=== PATIENT | female | born 1950 | race Caucasian/White ===

== ENCOUNTER → 2020-03-29 10:56 | Outpatient (BNVA) | payer MEDICARE, OTHER, SELFPAY | PROVIDERS: Family Provider Nurse Practitioner Family; PCP Nurse Practitioner Family; Visit Provider Nurse Practitioner Family | DX: Z00.00 Encounter for general adult medical examination without abnormal findings (principal); I10 Essential (primary) hypertension; E78.5 Hyperlipidemia, unspecified; N18.9 Chronic kidney disease, unspecified; E03.9 Hypothyroidism, unspecified; F41.1 Generalized anxiety disorder | CPT/HCPCS: 80053; 80061; 84443; 85025 ==

== ENCOUNTER → 2020-06-08 12:12 | Outpatient (BNVA) | payer MEDICARE, OTHER, SELFPAY | PROVIDERS: Family Provider Nurse Practitioner Family; PCP Nurse Practitioner Family; Visit Provider Nurse Practitioner Family | DX: M17.11 Unilateral primary osteoarthritis, right knee (principal); M25.561 Pain in right knee; E03.9 Hypothyroidism, unspecified | CPT/HCPCS: 73562; 84443 ==

== ENCOUNTER → 2020-07-12 14:37 | Outpatient (BNVA) | payer MEDICARE, OTHER, SELFPAY | PROVIDERS: Family Provider Nurse Practitioner Family; PCP Nurse Practitioner Family; Referring Provider Family Medicine; Visit Provider Specialist | DX: M25.561 Pain in right knee (principal); M17.0 Bilateral primary osteoarthritis of knee | CPT/HCPCS: 73560; 73565 ==

== ENCOUNTER → 2020-09-27 10:25 | Outpatient (BNVA) | payer MEDICARE, OTHER, SELFPAY | PROVIDERS: Family Provider Nurse Practitioner Family; PCP Nurse Practitioner Family; Visit Provider Family Medicine | DX: E03.9 Hypothyroidism, unspecified (principal); F41.1 Generalized anxiety disorder; I10 Essential (primary) hypertension; E78.5 Hyperlipidemia, unspecified | CPT/HCPCS: 80053; 80061; 84443; 85025 ==

== ENCOUNTER → 2021-04-26 09:13 | Outpatient (BNVA) | payer MEDICARE, OTHER, SELFPAY | PROVIDERS: Family Provider Nurse Practitioner Family; PCP Nurse Practitioner Family; Visit Provider Family Medicine | DX: E78.5 Hyperlipidemia, unspecified (principal); E03.9 Hypothyroidism, unspecified; I10 Essential (primary) hypertension; F41.1 Generalized anxiety disorder | CPT/HCPCS: 80053; 80061; 84443; 85025 ==

== ENCOUNTER → 2021-10-21 11:10 | Outpatient (BNVA) | payer MEDICARE, OTHER, SELFPAY | PROVIDERS: Family Provider Nurse Practitioner Family; PCP Family Medicine; Visit Provider Family Medicine | DX: E03.9 Hypothyroidism, unspecified (principal); E78.5 Hyperlipidemia, unspecified; F41.1 Generalized anxiety disorder; G25.81 Restless legs syndrome; I10 Essential (primary) hypertension | CPT/HCPCS: 80053; 80061; 84443; 85025 ==

== ENCOUNTER → 2022-02-06 14:30 | Outpatient (BNVA) | payer MEDICARE, OTHER, SELFPAY | PROVIDERS: Family Provider Nurse Practitioner Family; PCP Family Medicine; Visit Provider Nurse Practitioner Family | DX: M25.522 Pain in left elbow (principal) | CPT/HCPCS: 73080 ==

== ENCOUNTER → 2022-02-27 13:12 | Outpatient (BNVA) | payer MEDICARE, OTHER, SELFPAY | PROVIDERS: Family Provider Nurse Practitioner Family; PCP Family Medicine; Visit Provider Specialist | DX: M70.22 Olecranon bursitis, left elbow (principal) | CPT/HCPCS: 20610; 73080; 80503; 87070; 87075; 87205; 89050; 99213 ==

== ENCOUNTER → 2022-04-19 11:00 | Outpatient (BNVA) | payer MEDICARE, OTHER, SELFPAY | PROVIDERS: Family Provider Nurse Practitioner Family; PCP Family Medicine; Visit Provider Family Medicine | DX: I10 Essential (primary) hypertension (principal); E78.5 Hyperlipidemia, unspecified; E03.9 Hypothyroidism, unspecified; F41.1 Generalized anxiety disorder | CPT/HCPCS: 80053; 80061; 84443; 85025 ==

== ENCOUNTER → 2022-04-24 10:16 | Outpatient (BNVA) | payer MEDICARE, OTHER, SELFPAY | PROVIDERS: Family Provider Nurse Practitioner Family; PCP Family Medicine; Visit Provider Specialist | DX: M70.22 Olecranon bursitis, left elbow (principal) | CPT/HCPCS: 99213 ==

== ENCOUNTER → 2022-06-08 09:08 | Outpatient (BNVA) | payer MEDICARE, OTHER, SELFPAY | PROVIDERS: Family Provider Nurse Practitioner Family; PCP Family Medicine; Visit Provider Nurse Practitioner Family | DX: M24.022 Loose body in left elbow (principal) | CPT/HCPCS: 99214 ==

== ENCOUNTER 2022-06-23 08:56 | Day surgery (SDC) | payer MEDICARE, OTHER, SELFPAY ==
[2022-06-22 12:10] VITALS: BMI 26.8
[2022-06-23] VITALS (8 sets, daily range): BP systolic 102–175; BP diastolic 67–81; PULSE 55–60; RESP 12–20; TEMP 35.8–36.2; O2SAT 93–100
[2022-06-23] MEDS: sodium chloride 0.9% 1,000 ML 30 ML IV (09:31)
[2022-06-23] MEDS: acetaminophen 1,000 MG/100 ML PIGGYBACK 400 MG IV (09:33)
[2022-06-23] MEDS: CELEcoxib 200 mg Capsule 400 MG PO (09:35)
--- NOTE | 2022-06-23 10:03 | ANES.PREANE2 ---
Pre-Anesthetic Assessment Height/Weight: Height 1.55 m Weight 64.41 kg Temp Pulse Resp BP Pulse Ox O2 Del Method 97.1 F L 55 L 16 175/71 100 06/23/22 09:15 06/23/22 09:15 06/23/22 09:15 06/23/22 09:15 06/23/22 09:15 06/23/22 09:17 Preop Diagnosis: Left elbow loose body Operation Date: 06/23/22 12:00 Proposed Procedures p LEFT ELBOW FOREIGN BODY REMOVAL 48385,M24.022(Left) - Renee Mccullough MD Familial anesthetic complications: NOne Was Beta Ernestine taken within 24 hours: Yes Was Clonidine taken within 24 hours: N/A Last intake: Intake Last Liquid Date 06/22/22 Last Liquid Time 21:00 Last Solid Date 06/22/22 Last Solid Time 16:00 Social No alcohol and No tobacco Exam alert, oriented x 3, clear to auscultation bilaterally and regular rate & rhythm Airway Mallampati: Class II Dentition: full CV/HEM Hypertension Metabolic Hyperlipidemia and Thyroid Disease Anesthetic Plan ASA status: 3 Anesthesia: General Risk of > 500 ml blood loss (7ml/kg in children): No Medications/Allergies Home Medications Medication Instructions Recorded Confirmed Last Taken Type aspirin 81 mg tablet,delayed 81 mg PO DAILY 06/21/20 06/22/22 06/22/22 History release (Adult Low Dose Aspirin) citalopram 20 mg tablet 20 mg PO DAILY #90 tabs 04/19/22 06/22/22 06/22/22 Rx atorvastatin 20 mg tablet (Lipitor) 20 mg PO DAILY 06/22/22 06/22/22 06/22/22 History hydrochlorothiazide 25 mg tablet 25 mg PO DAILY 06/22/22 06/22/22 06/22/22 History levothyroxine 88 mcg tablet 88 mcg PO DAILY 06/22/22 06/23/22 06/23/22 06:30 History lisinopril 5 mg tablet 5 mg PO BID 06/22/22 06/22/22 06/22/22 History metoprolol succinate 100 mg 100 mg PO DAILY 06/22/22 06/23/22 06/23/22 06:30 History tablet,extended release 24 hr pramipexole 0.25 mg tablet 0.25 mg PO BEDTIME 0306/22/22 06/21/22 History Allergies Allergy/AdvReac Type Severity Reaction Status Date / Time No Known Allergies Allergy Verified 06/22/22 12:01 Current Medications Generic Name Dose Route Start Last Admin Trade Name Cornell PRN Reason Stop Dose Admin Sodium Chloride 1,000 mls @ 30 mls/hr 06/23/22 09:15 06/23/22 09:31 Sodium Chloride 0.9% IV 06/24/22 09:14 30 mls/hr .Q24H LENORE Administration PFSH Anesthesia Medical History CKD (chronic kidney disease) Dyslipidemia Hypertension Hypothyroidism (acquired) Osteoporosis Surgical History Hx of colonoscopy (~2013) recheck 10 yrs Family History Family/Other Hypertension Social History Smoking and tobacco status: never smoked Second hand smoke exposure: No Alcohol intake: never Lives independently: Yes Household members: spouse Marital status: Current occupational status: retired Current gender identity: Female Data Anesthesia Cardiac Studies: No Data to Display
--- NOTE | 2022-06-23 10:19 | P.HPUD_ITS ---
Surgery/Procedure H&P Update DATE OF PROCEDURE: June 23, 2022 DATE H&P PERFORMED: 06/08/22 H&P UPDATE INFORMATION: I have reviewed H&P completed within last 30 days, I have examined patient prior to procedure, No changes to prior documentation and H&P is in [facility] EMR on date indicated PREOP DIAGNOSIS: Left elbow loose body PLANNED PROCEDURE: Operation Date: 06/23/22 12:00 Proposed Procedures p LEFT ELBOW FOREIGN BODY REMOVAL 67119,M24.022(Left) - Renee Mccullough MD Related Problem List Diagnoses (1) Loose body of elbow: Qualifiers: Laterality: left Qualified Code(s): M24.022 - Loose body in left elbow
[2022-06-23] MEDS: ceFAZolin 2,000 MG in sodium chloride 0.9% (plus) 50 ML 100 MG IV (11:05)
--- NOTE | 2022-06-23 11:56 | P.OP_ITS ---
Operative Report Date of procedure: June 23, 2022 Pre-op diagnosis: Loose body left elbow Post-op diagnosis: Loose body left elbow Post-op findings: Small oblong grayish colored loose body with 2 tiny round similar looking loose bodies as well Procedure done: Removal loose body left elbow olecranon bursa Specimens removed/disposition: 1 larger and 2 tiny grayish colored loose bodies sent to pathology Pathology: As above Surgeon: Renee Mccullough Tree Scout: [facility] operating room technicians Anesthesia: General (Per LMA, ASA 3) Estimated blood loss (mL): 2 Tourniquet time (min): 0 IV fluids (mL): 600 Urine output (mL): 0 (No Diaz) Complications: None Findings: Small grayish colored oblong hard loose body with 2 tiny round similar looking loose bodies sent to pathology in normal saline Condition: stable Disposition: PACU (Then discharged to same-day surgery for discharge home) Brief History: Nadira Grant is an established 72 year old female who presents for removal of loose body from the olecranon bursa of her left elbow. She states if she hits her elbow she states having pain. On physical examination, she is able to roll this loose body around the prominence of her olecranon. It does not seem to extend out into the larger domain of her olecranon bursa. Risks and complications were discussed with her. She had been given the option of no surgical intervention, but she stated that it was painful for her and she wished to have it removed. Consents were signed and questions were answered. Procedure: The patient was brought to the operating theater. The patient was administered a general anesthetic per LMA. Following this, the patient's left upper extremity was prepped and draped with DuraPrep. It was draped free. Following prepping and draping and prior to surgical incision, a surgical pause was performed. At the time of surgical pause, we confirmed the site and side of surgery as well as appropriate and timely administration of preoperative antibiotics. The elbow was evaluated, and the loose body was palpated. A small incision was made on the radial aspect of the olecranon to allow removal of the small loose body. It was difficult to find a loose body. A needle was placed into it to hold it in position while further dissection into the olecranon bursa was accomplished. We were able to milk the loose body out of the incision. Following removal of this loose body, another small round loose body presented itself and subsequently, after irrigation, a third. The loose bodies were placed in normal saline and sent to pathology. The area was then copiously irrigated and no further loose bodies were palpated or seen. The elbow was placed through range of motion during this process to assure that any remaining loose bodies would present. Attention was then directed to closure. We closed the subcutaneous tissues with 2-0 Monocryl and subsequently closed the skin with a running 4-0 subcuticular suture. This was followed by Dermabond and Steri-Strips. An OpSite was placed followed by fluffs, soft roll, and an Cesar wrap. The procedure was well tolerated. Patient will be discharged home to follow-up with me in the office. Related Problem List Diagnoses (1) Loose body of elbow:
--- NOTE | 2022-06-23 12:01 | SUR.PHASEI ---
1153 PT TO RECOVERY AT THIS TIME VIA STRETCHER. ORAL AIRWAY IN PLACE. RESP EVEN AND UNLABORED.DRESSING TO LEFT ELBOW, DRY AND INTACT.
--- NOTE | 2022-06-23 12:04 | SUR.PHASEI ---
1204 ORAL AIRWAY REMOVED AT THIS TIME. SPO2 96% RA, PT ANSWERING QUESTIONS APPROPRIATELY.
--- NOTE | 2022-06-23 12:28 | ANE.PACU2 ---
Inpatient post-anesthesia follow up: Airway intact: Yes Vital signs: Temperature 96.5 F Pulse Rate 56 Respiratory Rate 16 Blood Pressure 145/74 Pulse Oximetry 96 Oxygen Delivery Me thod Room Air Oxygen Flow Rate Fraction of Inspir ed Oxygen Hydration adequate: Yes Nausea and vomiting: No Pain level: 1 Mental status: Baseline
--- NOTE | 2022-06-23 12:34 | PC.NURSE ---
Resting quietly. at bedside. no complaints at present.
[2022-06-29 22:29] LABS: Stone Source LEFT ELBOW
== END 2022-06-23 12:50 | disposition home or self-care (01) ==
PROVIDERS: PCP Family Medicine; Visit Provider Specialist
PROC: (CPT 24200; principal; 2022-06-23 11:50)
DX: M24.022 Loose body in left elbow (principal)
CPT/HCPCS: 24200; 82365; 88300; J0131; J0690; J1100; J1885; J2405; J2704; J3010; J7030

== ENCOUNTER → 2022-07-05 10:34 | Outpatient (BNVA) | payer MEDICARE, OTHER, SELFPAY | PROVIDERS: PCP Family Medicine; Visit Provider Nurse Practitioner Family | DX: M24.022 Loose body in left elbow (principal); Z98.890 Other specified postprocedural states | CPT/HCPCS: 99024 ==

== ENCOUNTER → 2022-10-13 10:54 | Outpatient (BNVA) | payer MEDICARE, OTHER, SELFPAY | PROVIDERS: PCP Family Medicine; Visit Provider Family Medicine | DX: I10 Essential (primary) hypertension (principal); E78.5 Hyperlipidemia, unspecified; E03.9 Hypothyroidism, unspecified | CPT/HCPCS: 80053; 80061; 84443; 85025 ==

== ENCOUNTER → 2023-05-14 09:33 | Outpatient (BNVA) | payer MEDICARE, OTHER, SELFPAY | PROVIDERS: PCP Family Medicine; Visit Provider Family Medicine | DX: I10 Essential (primary) hypertension (principal); E78.5 Hyperlipidemia, unspecified; E03.9 Hypothyroidism, unspecified; G25.81 Restless legs syndrome; F41.1 Generalized anxiety disorder | CPT/HCPCS: 80053; 80061; 84443; 85025 ==

== ENCOUNTER 2023-06-05 18:52 | Emergency (ER) | payer MEDICARE, OTHER, SELFPAY ==
--- NOTE | 2023-06-05 18:53 | XRR_ITS ---
PROCEDURE INFORMATION: Exam: XR Chest Exam date and time: 06/05/2023 7:07 PM Age: 73 years old Clinical indication: Pain; Chest pressure; Additional info: Cp TECHNIQUE: Imaging protocol: Radiologic exam of the chest. Views: 1 view. COMPARISON: No relevant prior studies available. FINDINGS: Lungs: Unremarkable. No consolidation. Pleural spaces: Unremarkable. No pleural effusion. No pneumothorax. Heart/Mediastinum: Unremarkable. No cardiomegaly. Vasculature: Atherosclerotic calcifications of the aorta are present. Bones/joints: Unremarkable. XR/XR chest 1V portable [id number] IMPRESSION: No evidence of acute cardiopulmonary disease.
--- NOTE | 2023-06-05 18:58 | ECG_ITS ---
[facility] Test Date: 2023-06-05 Pat Name: Nadira Grant Department: Room: Gender: Female [employer] Operator: : [id number] Requested By: Otilio Sarkar Order Number: [id number] Sirena MD: Thiago Ledbetter M.D. Measurements Intervals [place] Rate: 70 P: 46 GA: 171 QRS: 52 QRSD: 94 T: 44 QT: 414 QTc: 448 Interpretive Statements SINUS RHYTHM POSSIBLE RIGHT VENTRICULAR CONDUCTION DELAY [RSR (QR) IN V1/V2] MINIMAL ST DEPRESSION [0.025+ mV ST DEPRESSION] No previous ECG available for comparison Electronically Signed On 06-06-2023 8:13:54 MANAGER SOCIAL RESPONSIBILITY by Thiago Ledbetter M.D. [id number]
[2023-06-05 19:00] VITALS: BP 134/86; PULSE 73; RESP 15; O2SAT 99
--- NOTE | 2023-06-05 19:00 | W.ED.CHESTPA ---
HPI - Chest Pain General: Chief Complaint: Chest Pain Stated Complaint: Chest Pain Time Seen by Provider: 06/05/23 18:59 Source: patient Mode of arrival: ambulatory Limitations: no limitations History of Present Illness: 73-year-old female states that over the last week she has had some chest pains. States been mild and it has been a burning-like sensation in her chest. States she does have reflux she denies any nausea or shortness of breath. Denies any cough she denies any worse improved factors states her pain currently is a 1 out of 10 Associated symptoms: Deny abdominal pain, dyspnea, fever(s), nausea or vomiting Review of Systems Const: Denies: fever(s), chills, body aches or change in appetite Eyes: Denies: blurry vision or eye discomfort ENMT: Denies: throat pain or dental pain Card: Reports: chest pain Resp: Denies: dyspnea GI: Denies: abdominal pain, nausea, vomiting or diarrhea Musc: Denies: neck pain or back pain Skin/Breast: Denies: rash Neuro: Denies: headache(s) PFSH ED PFSH: Medical History Dyslipidemia Hypothyroidism (acquired) CKD (chronic kidney disease) Osteoporosis Hypertension Surgical History Hx of colonoscopy (~2013) recheck 10 yrs Family History Family/Other Hypertension Social History Smoking and tobacco/nicotine status: never used tobacco/nicotine Second hand smoke exposure: No Alcohol intake: never Substance/Drug Use: never Lives independently: Yes Household members: spouse Marital status: Current occupational status: retired Current gender identity: Female Physical Exam Const: COMMON NORMALS: no acute distress, patient oriented x3 and healthy appearing HENMT: COMMON NORMALS: normocephalic and atraumatic HEAD & SCALP: normocephalic and atraumatic Eye: COMMON NORMALS: conjunctivae normal CONJUNCTIVA: Yes conjunctivae normal Neck/C-Spine: COMMON NORMALS: full ROM and supple Chest: COMMONS NORMALS: normal inspection of the chest Resp: COMMON NORMALS: normal respiratory effort, No retractions, No use of accessory muscles and clear to auscultation bilaterally AUSCULTATION: clear to auscultation bilaterally Cardio: COMMON NORMALS: regular rate, regular rhythm and No murmurs present (Cardio) RATE: regular rate RHYTHM: regular rhythm Extremity: COMMON NORMALS: normal to inspection and full ROM Neuro: COMMON NORMALS: patient oriented x3, moves all extremities and no focal motor deficits Psych: COMMON NORMALS: mental status grossly normal, Normal thought process present and cooperative THOUGHT PROCESS: Normal thought process present Skin: COMMON NORMALS: no rashes or lesions noted and no wounds GENERAL SKIN EXAM: no rashes or lesions noted Course Vital Signs: Vital signs: Vital Signs Pulse Rate 65 06/05/23 20:15 Respiratory Rate 16 06/05/23 20:15 Blood Pressure 176/69 06/05/23 20:15 Pulse Oximetry 95 06/05/23 20:15 Oxygen Delivery Me thod Room Air 06/05/23 19:00 MDM - Chest Pain Medical Decision Making Patient presents for chest pain that is atypical in nature history sounds like gastritis her initial repeat troponin here negative her pain is resolved here we will place her on Protonix I did inform her she needs to follow-up with her PCP she likely still needs a outpatient stress test she is return to ER if she is worsening she understands agrees to plan. Medical Records I reviewed the patient's medical records. Lab Data I reviewed the patient's lab results. 06/05/23 19:07 06/05/23 19:07 Radiology Impressions Chest X-Ray 06/05/23 18:53 IMPRESSION: No evidence of acute cardiopulmonary disease. Laboratory Results WBC 4.55 10^3/uL (3.29-11.43) 06/05/23 19:07 RBC 4.29 10^6/uL (3.85-5.65) 06/05/23 19:07 Hgb 12.80 g/dL (11.27-16.99) 06/05/23 19:07 Hct 37.8 % (36-47) 06/05/23 19:07 MCV 88.1 fl (85-98) 06/05/23 19:07 MCH 29.8 pg (27-33) 06/05/23 19:07 MCHC 33.9 g/dL (30-55) 06/05/23 19:07 RDW 13.5 % (12.1-15.1) 06/05/23 19:07 Plt Count 231 10^3/cmm (157-399) 06/05/23 19:07 MPV 10.4 fL (7.4-10.4) 06/05/23 19:07 Neut % (Auto) 49.9 % 06/05/23 19:07 Lymph % (Auto) 34.5 % 06/05/23 19:07 [place] % (Auto) 12.5 % 06/05/23 19:07 Eos % (Auto) 2.0 % 06/05/23 19:07 Baso % (Auto) 0.2 % 06/05/23 19:07 Neut # (Auto) 2.27 10^3/uL (1.8-7.7) 06/05/23 19:07 Lymph # (Auto) 1.6 10^3/uL (0.8-4.8) 06/05/23 19:07 [place] # (Auto) 0.6 10^3/uL (0.2-0.9) 06/05/23 19:07 Eos # (Auto) 0.1 10^3/uL (0.0-0.8) 06/05/23 19:07 Baso # (Auto) 0.0 10^3/uL (0.0-0.1) 06/05/23 19:07 Nucleated RBC % (auto) 0 % 06/05/23 19:07 Nucleated RBCs # 0.0 /100WBC 06/05/23 19:07 Sodium 137 mmol/L (136-145) 06/05/23 19:07 Potassium 3.9 mmol/L (3.5-5.1) 06/05/23 19:07 Chloride 99 mmol/L (98-107) 06/05/23 19:07 Carbon Dioxide 27 mmol/L (22-29) 06/05/23 19:07 Anion Gap 14.9 (5-19) 06/05/23 19:07 BUN 26 mg/dL (8-23) H 06/05/23 19:07 Creatinine 1.2 mg/dL (0.5-0.9) H 06/05/23 19:07 GFR Calculation Not Reportable 06/05/23 19:07 Glucose 110 mg/dL (65-115) 06/05/23 19:07 Calculated Osmolality 289 mOsm/kg (285-295) 06/05/23 19:07 Calcium 9.4 mg/dL (8.5-10.5) 06/05/23 19:07 Total Bilirubin 0.5 mg/dL (0.15-1.2) 06/05/23 19:07 AST 22 U/L (0-32) 06/05/23 19:07 ALT 16 U/L (0-33) 06/05/23 19:07 Alkaline Phosphatase 97 U/L (35-105) 06/05/23 19:07 Troponin T Baseline 13 ng/L (0-10) H 06/05/23 19:07 Troponin T 120 Minute 14.19 ng/L (0-10) H 06/05/23 20:50 Delta Troponin T 1.19 ABS# (0-10) 06/05/23 20:50 Total Protein 7.0 g/dL (6.6-8.7) 06/05/23 19:07 Albumin 4.7 g/dL (3.5-5.2) 06/05/23 19:07 Globulin 2.3 g/dL (1.3-4.6) 06/05/23 19:07 Lipase 36 U/L (13-60) 06/05/23 19:07 All radiology interpretation(s) finalized by discharge EKG Data EKG 1: I personally reviewed and interpreted this EKG as follows: EKG interpretation date: 06/05/23 EKG interpretation time: 18:58 Interpretation: nsr hr [address] or t wave abnormalities qrs 94 qtc 435 Discharge Plan Discharge Patient Disposition: Home Clinical Impression: Chest pain Condition: Stable Prescriptions: New Protonix 40 mg tablet,delayed release (DR/EC) 40 mg PO DAILY Qty: 60 0RF No Action aspirin [Adult Low Dose Aspirin] 81 mg tablet,delayed release (DR/EC) 81 mg PO DAILY pramipexole 0.5 mg tablet 0.5 mg PO BEDTIME Qty: 90 1RF citalopram 20 mg tablet See Rx Instructions .ROUTE .COMPLEX Qty: 90 2RF Dose Instruction: TAKE 1 TABLET BY MOUTH EVERY DAY Rx Instructions: TAKE 1 TABLET BY MOUTH EVERY DAY hydrochlorothiazide 25 mg tablet See Rx Instructions .ROUTE .COMPLEX Qty: 90 2RF Dose Instruction: TAKE 1 TABLET BY MOUTH EVERY DAY IN THE MORNING Rx Instructions: TAKE 1 TABLET BY MOUTH EVERY DAY IN THE MORNING levothyroxine 88 mcg tablet 88 mcg PO DAILY Qty: 90 2RF lisinopril 5 mg tablet 5 mg PO BID Qty: 180 0RF metoprolol succinate 100 mg tablet extended release 24 hr 100 mg PO DAILY Qty: 90 2RF atorvastatin 20 mg tablet See Rx Instructions .ROUTE .COMPLEX Qty: 90 2RF Dose Instruction: TAKE 1 TABLET BY MOUTH EVERY DAY Rx Instructions: TAKE 1 TABLET BY MOUTH EVERY DAY Discharge Orders: Discharge ED (Routine); Ordered 06/05/23 Ordered By: Otilio Sarkar Referrals: Olivia Steiner MD [Primary Care Provider] - 1-3 days Discharge Diet: Advance as tolerated Discharge Activity: Resume usual activity Patient Instructions: Chest Pain (ED) Coding Level of Care Code ED Lance Crewmember/Mlrs Sergeant for Doris Aguirre
[2023-06-05] MEDS: aspirin 81 mg Chew Tablet 324 MG PO (19:11)
[2023-06-05 19:13] LABS: Basophils % 0.2 %; Eosinophils # 0.1 10^3/uL (0.0-0.8); Hematocrit 37.8 % (36-47); Lymphocytes # 1.6 10^3/uL (0.8-4.8); Lymphocytes % 34.5 %; Mean Corpuscular HGB Conc 33.9 g/dL (30-55); Mean Corpuscular Hemoglobin 29.8 pg (27-33); Mean Corpuscular Volume 88.1 fl (85-98); Mean Platelet Volume 10.4 fL (7.4-10.4); Monocytes # 0.6 10^3/uL (0.2-0.9); Monocytes % 12.5 %; Neutrophils # 2.27 10^3/uL (1.8-7.7); Neutrophils % 49.9 %; Nucleated Red Blood Cells % 0 %; Platelet Count 231 10^3/cmm (157-399); Red Blood Count 4.29 10^6/uL (3.85-5.65); Red Cell Distribution Width 13.5 % (12.1-15.1); White Blood Count 4.55 10^3/uL (3.29-11.43)
[2023-06-05 19:29] LABS: Troponin(5th) Baseline 13 ng/L (0-10)
[2023-06-05 19:30] VITALS: BP 190/82; PULSE 65; RESP 16; O2SAT 97
[2023-06-05 19:34] LABS: Alanine Aminotransferase 16 U/L (0-33); Albumin Level 4.7 g/dL (3.5-5.2); Alkaline Phosphatase 97 U/L (35-105); Anion Gap 14.9 (5-19); Aspartate Amino Transferase 22 U/L (0-32); Blood Urea Nitrogen 26 mg/dL (8-23); Calcium 9.4 mg/dL (8.5-10.5); Carbon Dioxide 27 mmol/L (22-29); Chloride 99 mmol/L (98-107); Globulin 2.3 g/dL (1.3-4.6); Glucose 110 mg/dL (65-115); Lipase 36 U/L (13-60); Osmolality Calculated 289 mOsm/kg (285-295); Potassium 3.9 mmol/L (3.5-5.1); Sodium 137 mmol/L (136-145); Total Bilirubin 0.5 mg/dL (0.15-1.2)
[2023-06-05 20:15] VITALS: BP 176/69; PULSE 65; RESP 16; O2SAT 95
[2023-06-05 21:14] LABS: Troponin 5 2HR 14.19 ng/L (0-10); Troponin 5 2HR Delta 1.19 ABS# (0-10)
--- NOTE | 2023-06-06 10:20 | PC.NURSE ---
RX CALLED INTO [facility] [place].
== END 2023-06-05 21:46 | disposition home or self-care (01) ==
PROVIDERS: Emergency Provider Emergency Medicine; PCP Family Medicine
DX: R07.9 Chest pain, unspecified (principal); Z79.82 Long term (current) use of aspirin; E78.5 Hyperlipidemia, unspecified; I12.9 Hypertensive chronic kidney disease with stage 1 through stage 4 chronic kidney disease, or unspecified chronic kidney disease; N18.9 Chronic kidney disease, unspecified
CPT/HCPCS: 36415; 71045; 80053; 83690; 84484; 85025; 93005; 99285

== ENCOUNTER → 2023-10-01 11:59 | Outpatient (BNVA) | payer MEDICARE, OTHER, SELFPAY | PROVIDERS: PCP Family Medicine; Visit Provider Family Medicine | DX: I10 Essential (primary) hypertension (principal); F41.1 Generalized anxiety disorder; E03.9 Hypothyroidism, unspecified; E78.5 Hyperlipidemia, unspecified; G25.81 Restless legs syndrome; K21.9 Gastro-esophageal reflux disease without esophagitis | CPT/HCPCS: 80053; 80061; 84443; 85025 ==

== ENCOUNTER → 2024-03-26 11:28 | Outpatient (BNVA) | payer MEDICARE, OTHER, SELFPAY | PROVIDERS: PCP Nurse Practitioner Family; Visit Provider Nurse Practitioner Family | DX: I10 Essential (primary) hypertension (principal); R73.9 Hyperglycemia, unspecified | CPT/HCPCS: 80053; 80061; 82607; 83036; 84443; 85025 ==

== ENCOUNTER 2024-04-18 13:01 | Outpatient (CLI) | payer MEDICARE, OTHER, SELFPAY ==
--- NOTE | 2024-04-18 13:30 | XR_ITS ---
WS: [id number] DEXA (DUAL ENERGY X-RAY ABSORPTIOMETRY) Bone mineral density was performed using a Meniga machine. HISTORY: Z78.0 - Asymptomatic menopausal state COMPARISON: 02/13/2017 Lumbar spine BMD (L1-L4): 0.878 g/cm2 T score: -2.5 Z score: -1.1 Total hip BMD: Left: 0.817 g/cm2. T score: -1.5 Z score: 0.0 Right: 0.685 g/cm2. T score: -2.6 Z score: -1.1 10 year probability of a major osteoporotic fracture is 14.2%. Compared to the prior study from 02/13/2017. Lumbar spine bone mineral density has increased by 5.0%. Bilateral hips bone mineral density has increased by 8.8%. XR/XR DEXA axial skeleton* [id number] IMPRESSION: OSTEOPOROSIS based upon the WHO classification for females. There has been a significant increase in bone mineral density within both the l umbar spine and hips since the prior study.
== END 2024-04-18 13:02 | disposition home or self-care (01) ==
LOC: RAD 13:03
PROVIDERS: PCP Nurse Practitioner Family; Visit Provider Nurse Practitioner Family
DX: Z13.820 Encounter for screening for osteoporosis (principal); M81.0 Age-related osteoporosis without current pathological fracture; Z78.0 Asymptomatic menopausal state
CPT/HCPCS: 77080

== ENCOUNTER → 2024-11-25 09:01 | Outpatient (BNVA) | payer MEDICARE, OTHER, SELFPAY | PROVIDERS: PCP Nurse Practitioner Family; Visit Provider Nurse Practitioner Family | DX: S59.901A Unspecified injury of right elbow, initial encounter (principal); X58.XXXA Exposure to other specified factors, initial encounter | CPT/HCPCS: 73080; 80053; 80061; 82306; 84443; 85025 ==